=== PATIENT | male | born 1950 | race Two or more races ===

== ENCOUNTER 2020-12-09 07:00 | Outpatient (CLI) | payer OTHER ==
[~2020-12-09] VITALS: Ht 175.3 cm; Wt 95.3 kg
[~2020-12-09 07:00] MED LIST: ALLOPURINOL300 MG PO; ELIQUIS2.5 MG PO; HUMULIN 70100 UNIT/2 SUBCUTANEO; LIPITOR20 MG PO
[2020-12-09] MEDS ORDERED: ALLOPURINOL100 MG (10:07)
[2020-12-09] MEDS ORDERED: ATORVASTATIN CA20 MG (10:07)
[2020-12-09] MEDS ORDERED: ELIQUIS2.5 MG (10:08)
[2020-12-09] MEDS ORDERED: PHOSLO667 M1 (10:08)
== END 2020-12-09 09:00 | disposition home or self-care (01) ==
LOC: LAB 07:00 → EDSTATUS 08:30 → O/R 08:30 → LAB 09:00
PROVIDERS: ATTEND Surgery
DX: D12.8 Benign neoplasm of rectum (principal); R19.4 Change in bowel habit; R19.5 Other fecal abnormalities; D37.5 Neoplasm of uncertain behavior of rectum; I10 Essential (primary) hypertension

== ENCOUNTER 2020-12-27 06:53 | Inpatient (IN) | payer OTHER ==
[~2020-12-27] VITALS: Ht 175.3 cm; Wt 95.3 kg
[~2020-12-27 06:53] MED LIST changes: +ALLOPURINOL100 MG; +ATORVASTATIN CA20 MG; +ELIQUIS2.5 MG; +PHOSLO667 M1
[2020-12-27] MEDS ORDERED: ST. JOSEPH ASPI81 M2 (09:56)
[2020-12-27] MEDS ORDERED: LOSARTAN POTASS50 MG (09:56)
[2020-12-28] MEDS ORDERED: OXYC1TAB9 PO (13:36)
== END 2020-12-28 16:21 | disposition home or self-care (01) | DRG 347 ==
LOC: O/R 06:53 → SURH 10:00
PROVIDERS: ADMIT Surgery; ATTEND Surgery
PROC: 0DBP7ZZ Excision of Rectum, Via Natural or Artificial Opening (ICD-10-PCS; principal; 2020-12-27 10:00)
PROC: 5A1D70Z Performance of Urinary Filtration, Intermittent, Less than 6 Hours Per Day (ICD-10-PCS; 2020-12-28)
DX: D12.8 Benign neoplasm of rectum (principal); N18.6 End stage renal disease; I13.11 Hypertensive heart and chronic kidney disease without heart failure, with stage 5 chronic kidney disease, or end stage renal disease; E11.22 Type 2 diabetes mellitus with diabetic chronic kidney disease; I25.10 Atherosclerotic heart disease of native coronary artery without angina pectoris; I48.91 Unspecified atrial fibrillation; D37.5 Neoplasm of uncertain behavior of rectum; Z99.2 Dependence on renal dialysis

== ENCOUNTER 2021-01-11 09:36 | Inpatient (IN) | payer OTHER ==
[~2021-01-11] VITALS: Ht 167.6 cm; Wt 113.4 kg
[~2021-01-11 09:36] MED LIST changes: +LOSARTAN POTASS50 MG; +OXYC1TAB9 PO; +ST. JOSEPH ASPI81 M2
[2021-01-12] MEDS ORDERED: ST. JOSEPH ASPI81 M2 (08:10)
[2021-01-13] MEDS ORDERED: RECTICARE30 GM TOP (10:13)
[2021-01-13] MEDS ORDERED: DICLOFENAC SODI75 MG PO (10:14)
== END 2021-01-13 12:24 | disposition home or self-care (01) | DRG 393 ==
LOC: ER 09:36 → SEC-K 12:49 → SURH 12:49 → SEC-K 17:39 → SURH 01-12 12:02
PROVIDERS: ADMIT Surgery; ATTEND Surgery
PROC: 5A1D70Z Performance of Urinary Filtration, Intermittent, Less than 6 Hours Per Day (ICD-10-PCS; principal; 2021-01-12)
PROC: 30233N1 Transfusion of Nonautologous Red Blood Cells into Peripheral Vein, Percutaneous Approach (ICD-10-PCS; 2021-01-12)
DX: K91.89 Other postprocedural complications and disorders of digestive system (principal); N18.6 End stage renal disease; K62.5 Hemorrhage of anus and rectum; I12.0 Hypertensive chronic kidney disease with stage 5 chronic kidney disease or end stage renal disease; Y83.8 Other surgical procedures as the cause of abnormal reaction of the patient, or of later complication, without mention of misadventure at the time of the procedure; Z99.2 Dependence on renal dialysis; Z95.5 Presence of coronary angioplasty implant and graft; Z79.01 Long term (current) use of anticoagulants